=== PATIENT | female | born 2000 | race Caucasian/White ===

== ENCOUNTER 2023-12-14 13:36 | Emergency (ER) | payer SELFPAY ==
[~2023-12-14] VITALS: Ht 167.6 cm; Wt 145.4 kg
[2023-12-14 13:53] VITALS: TEMP 98.2
[2023-12-14] MEDS: IBUPROFEN 600 MG TABLET PO ONE (15:22)
[2023-12-14] MEDS: ACETAMINOPHEN 325 MG TABLET PO ONE (15:22)
[2023-12-14] MEDS: LIDOCAINE 5% TRANSDERMAL PATCH TD ONE (15:23)
[2023-12-14 16:23] VITALS: BP 139/73; PULSE 66; RESP 18; O2SAT 100
== END 2023-12-14 16:23 | disposition home or self-care (01) ==
LOC: EMS 13:36
DX: M25.561 Pain in right knee (principal); F12.90 Cannabis use, unspecified, uncomplicated
CPT/HCPCS: 99283